=== PATIENT | female | born 1995 | race Caucasian/White ===

== ENCOUNTER 2018-12-26 09:47 | Outpatient (CLI) | payer OTHER ==
--- NOTE | 2018-12-26 10:15 | RAD ---
XR Finger(s) Lt Min 2 View History: Thumb pain Comparison: None. Findings: No acute fracture or malalignment. Small accessory ossicle versus old injury at the dorsal aspect interphalangeal joint of the thumb. Impression: No acute osseous abnormality.
== END 2018-12-26 09:48 | disposition home or self-care (01) ==
LOC: BICRAD 09:47
PROVIDERS: ATTEND Family Medicine
DX: M79.645 Pain in left finger(s) (principal)